=== PATIENT | female | born 1935 | race Caucasian/White ===

== ENCOUNTER 2016-11-25 17:34 | Observation (INO) | payer OTHER ==
[~2016-11-25] VITALS: Ht 157.5 cm; Wt 69.4 kg
[~2016-11-25 17:34] MED LIST: IOHEXOL 350 MG/ML 10 ML VIAL (for RAD DIAG) IVCONTRAST ONE; LEVA500T33 PO; LISI10TA PO; LOMO PO; MEVA40TA6 PO; WARF7.5 PO
[2016-11-25 17:37] VITALS: BP 163/75; PULSE 88; RESP 17; TEMP 97.8; O2SAT 98
[2016-11-25 17:38] VITALS: RESP 17; O2SAT 99
[2016-11-25] MEDS ORDERED: SODIUM CHLORIDE 0.9% FLUSH 10 ML FLUSH IVF PRN (17:45)
[2016-11-25] MEDS ORDERED: LISI10TA PO (17:52)
[2016-11-25] MEDS ORDERED: PLAV75TA29 PO (17:52)
--- NOTE | 2016-11-25 17:53 | RADRPT ---
EXAM DATE/TIME: 11/25/2016 17:38 [facility] COMPARISON: No previous studies available for comparison. INDICATIONS : Diffulculty talking with some confusion. RADIATION DOSE: 56.35 CTDIvol (mGy) MEDICAL HISTORY : None SURGICAL HISTORY : None. ENCOUNTER: Initial ACUITY: 1 day PAIN SCALE: 3/10 LOCATION: Bilateral cranial TECHNIQUE: Multiple contiguous axial images were obtained of the head. Using automated exposure control and adj ustment of the mA and/or kV according to patient size, radiation dose was kept as low as reasonably a chievable to obtain optimal diagnostic quality images. DICOM format image data is available electro nically for review and comparison. FINDINGS: CEREBRUM: The ventricles are normal for age. No evidence of midline shift, mass lesion, hemorrhage or acute in farction. No extra-axial fluid collections are seen. POSTERIOR FOSSA: The cerebellum and brainstem are intact. The 4th ventricle is midline. The cerebellopontine angle i s unremarkable. EXTRACRANIAL: The visualized portion of the orbits is intact. SKULL: The calvaria is intact. No evidence of skull fracture. CONCLUSION: 1. No acute intracranial abnormality identified. Antwan Rodrigues MD on November 25, 2016 at 17:50 Board Certified Radiologist. This report was verified electronically.
--- NOTE | 2016-11-25 18:14 | PD ---
HPI Chief Complaint: Neuro Symptoms/ Deficits Time Seen by Provider: 17:41 Travel History International Travel<30 days: No Contact w/Intl Traveler<30days: No Traveled to known affect area: No History of Present Illness HPI The patient is a 81 yo F who arrives by EMS. The patient told EMS she had slurred speech. Evidently she lost consciousness and slipped to the ground before EMS arrived. On my exam the patient describes generalized fatigue constant and of moderate severity. EMS was concerned for a stroke having observed slurred speech in route to the ER. Location neurologic. Timing constant. PFSH Past Medical History Hx Anticoagulant Therapy: Yes (PLAVIX) Cardiovascular Problems: Yes (HBP) Cerebrovascular Accident: Yes (2015) Diminished Hearing: No Hypertension: Yes Respiratory: Yes (HX OF PE 2005) Menopausal: Yes Past Surgical History Abdominal Surgery: Yes (INTESTINAL BLOCKAGE 1972) Appendectomy: Yes (1949) Cholecystectomy: Yes (1951) Social History Alcohol Use: Yes (4-5 BEERS PER WEEK) Tobacco Use: No Substance Use: No Allergies-Medications (Allergen,Severity, Reaction): Coded Allergies: No Known Allergies (Unverified , 11/25/16) Reported Meds & Prescriptions Reported Meds & Active Scripts Active Reported Plavix (Clopidogrel Bisulfate) 75 Mg Tab 75 Mg PO DAILY Lisinopril-Hctz 10-12.5 Mg Tab 1 Tab PO DAILY Review of Systems Except as stated in HPI: all other systems reviewed are Neg Physical Exam Narrative GENERAL: 81-year-old female well-nourished well-developed SKIN: Warm and dry. HEAD: Atraumatic. Normocephalic. EYES: Pupils equal and round. No scleral icterus. No injection or drainage. ENT: No nasal bleeding or discharge. Mucous membranes pink and moist. NECK: Trachea midline. No JVD. CARDIOVASCULAR: Regular rate and rhythm. RESPIRATORY: No accessory muscle use. Clear to auscultation. Breath sounds equal bilaterally. GASTROINTESTINAL: Abdomen soft, non-tender, nondistended. Hepatic and splenic margins not palpable. MUSCULOSKELETAL: Extremities without clubbing, cyanosis, or edema. No obvious deformities. NEUROLOGICAL: Patient speaks full sentences. There is no pronator drift. The hand engraver tire mold is equal bilaterally. 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 Pt can ready sentences. There is no facial asymmetry. PSYCHIATRIC: Appropriate mood and affect; insight and judgment normal. Data Data Last Documented VS Vital Signs Date Time Temp Pulse Resp B/P (MAP) Pulse Ox O2 Delivery O2 Flow Rate FiO2 11/25/16 18:18 97.9 83 17 146/65 (92) 97 Room Air Vital signs reviewed Orders Orders Electrocardiogram (11/25/16 17:41) Prothrombin Time / Inr (Pt) (11/25/16 17:41) Act Partial Throm Time (Ptt) (11/25/16 17:41) Complete Blood Count With Diff (11/25/16 17:41) Basic Metabolic Panel (Bmp) (11/25/16 17:41) Drug Screen, Random Urine (11/25/16 17:41) Troponin I (11/25/16 17:41) Urinalysis - C+S If Indicated (11/25/16 17:41) Ct Brain W/O Iv Contrast(Rout) (11/25/16 17:41) Ecg Monitoring (11/25/16 17:41) Iv Access Insert/Monitor (11/25/16 17:41) Oximetry (11/25/16 17:41) Blood Glucose (11/25/16 17:41) Sodium Chloride 0.9% Flush (Ns Flush) (11/25/16 17:45) Alcohol (Ethanol) (11/25/16 17:41) Sodium Chlor 0.9% 1000 Ml Inj (Ns 1000 M (11/25/16 19:15) Potassium Chloride (Kcl) (11/25/16 19:15) Admit Order (Ed Use Only) (11/25/16 19:23) Labs Laboratory Tests Test 11/25/16 18:00 White Blood Count 10.9 TH/MM3 Red Blood Count 3.67 MIL/MM3 Hemoglobin 11.4 GM/DL Hematocrit 33.0 % Mean Corpuscular Volume 90.1 FL Mean Corpuscular Hemoglobin 31.2 PG Mean Corpuscular Hemoglobin Concent 34.6 % Red Cell Distribution Width 13.5 % Platelet Count 276 TH/MM3 Mean Platelet Volume 7.0 FL Neutrophils (%) (Auto) 57.6 % Lymphocytes (%) (Auto) 33.1 % Monocytes (%) (Auto) 7.0 % Eosinophils (%) (Auto) 1.9 % Basophils (%) (Auto) 0.4 % Neutrophils # (Auto) 6.3 TH/MM3 Lymphocytes # (Auto) 3.6 TH/MM3 Monocytes # (Auto) 0.8 TH/MM3 Eosinophils # (Auto) 0.2 TH/MM3 Basophils # (Auto) 0.0 TH/MM3 CBC Comment DIFF FINAL Differential Comment Prothrombin Time 10.1 SEC Prothromb Time International Ratio 0.9 RATIO Activated Partial Thromboplast Time 24.5 SEC Blood Urea Nitrogen 11 MG/DL Creatinine 0.67 MG/DL Random Glucose 79 MG/DL Calcium Level 8.5 MG/DL Sodium Level 124 MEQ/L Potassium Level 3.0 MEQ/L Chloride Level 91 MEQ/L Carbon Dioxide Level 19.5 MEQ/L Anion Gap 14 MEQ/L Estimat Glomerular Filtration Rate 85 ML/MIN Troponin I LESS THAN 0.02 NG/ML Ethyl Alcohol Level 195 MG/DL [facility] Medical Decision Making Medical Screen Exam Complete: Yes Emergency Medical Condition: Yes Medical Record Reviewed: Yes Differential Diagnosis TIA, CVA, etoh intox Narrative Course Last Impressions Head CT 11/25/161740 Signed Impressions: Service Date/Time: November 17:38 - CONCLUSION: 1. No acute intracranial abnormality identified. Antwan Rodrigues MD CBC & BMP Diagram 11/25/16 18:00 Calcium Level 8.5 EtOH 195 Last [address] 11/25/161740 Signed Impressions: Service Date/Time: November 17:38 - CONCLUSION: 1. No acute intracranial abnormality identified. Antwan Rodrigues MD d/w Dr Juárez Diagnosis Primary Impression: Altered mental status Qualified Codes: R41.82 - Altered mental status, unspecified Additional Impressions: Alcohol intoxication Qualified Codes: F10.929 - Alcohol use, unspecified with intoxication, unspecified Hypokalemia Hyponatremia Admitting Information Admitting Physician Requests: Observation Antwan Robertson MD Nov 25, 2016 18:14
[2016-11-25 18:18] VITALS: BP 146/65; PULSE 83; RESP 17; TEMP 97.9; O2SAT 97
[2016-11-25 18:24] LABS: AUTOMATED NEUTROPHIL # 6.3 TH/MM3 (1.8-7.7); BASOPHIL % 0.4 % (0.0-2.0); EOSINOPHIL # 0.2 TH/MM3 (0-0.4); EOSINOPHIL % 1.9 % (0.0-4.0); HEMO FLAGS DIFF FINAL; LYMPH % 33.1 % (9.0-44.0); LYMPHOCYTE # 3.6 TH/MM3 (1.0-4.8); MEAN CELL VOLUME 90.1 FL (80.0-100.0); MEAN CORPUSCULAR HEMOGLOBIN 31.2 PG (27.0-34.0); MEAN CORPUSCULAR HGB CONC 34.6 % (32.0-36.0); NEUT % 57.6 % (16.0-70.0); PLATELET COUNT 276 TH/MM3 (150-450); RED BLOOD COUNT 3.67 MIL/MM3 (4.00-5.30); RED CELL DISTRIBUTION WIDTH 13.5 % (11.6-17.2); WHITE BLOOD COUNT 10.9 TH/MM3 (4.0-11.0)
[2016-11-25 18:38] LABS: APTT (PATIENT) 24.5 SEC (24.3-30.1); INTERNATIONAL NORMALIZED RATIO 0.9 RATIO; PROTHROMBIN TIME - PATIENT 10.1 SEC (9.8-11.6)
[2016-11-25 18:45] LABS: ALCOHOL 195 MG/DL (0-5); ANION GAP 14 MEQ/L (5-15); BICARBONATE 19.5 MEQ/L (21.0-32.0); BLOOD UREA NITROGEN 11 MG/DL (7-18); CHLORIDE 91 MEQ/L (98-107); GLOMERULAR FILTRATION RATE 85 ML/MIN (>89)
[2016-11-25 18:48] LABS: SODIUM (NA) 124 MEQ/L (136-145)
[2016-11-25] MEDS ORDERED: SODIUM CHLOR 0.9% 1000 ML INJ 1,000 ML IV ONE (19:15)
[2016-11-25] MEDS ORDERED: POTASSIUM CHLORIDE 20 MEQ CONTROLLED RELEASE TAB PO ONE (19:15)
[2016-11-25] MEDS ORDERED: GADODIAMIDE PF 287 MG/ML 5 ML VIAL (for RAD MRI) IVCONTRAST ONE (19:26)
[2016-11-25] MEDS ORDERED: SODIUM CHLOR 0.9% 1000 ML INJ 1,000 ML IV SCH (20:10)
[2016-11-25] MEDS ORDERED: ONDANSETRON HCL 4 MG/2 ML VIAL IVP PRN (20:15)
[2016-11-25] MEDS ORDERED: SODIUM CHLORIDE 0.9% FLUSH 10 ML FLUSH IV FLUSH PRN (20:15)
[2016-11-25] MEDS ORDERED: NALOXONE HCL 0.4 MG/ML AMP IV PUSH PRN (20:15)
[2016-11-25] MEDS: SODIUM CHLORIDE 0.9% FLUSH 10 ML FLUSH IV FLUSH SCH (20:55)
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
--- NOTE | 2016-11-25 23:04 | RADRPT ---
EXAM DATE/TIME: 11/25/2016 22:42 [facility] COMPARISON: No previous studies available for comparison. INDICATIONS : Short of breath. MEDICAL HISTORY : Compression fracture. SURGICAL HISTORY : None. ENCOUNTER: Initial ACUITY: 1 day PAIN SCORE: 0/10 LOCATION: Bilateral chest FINDINGS: A single view of the chest demonstrates the lungs to be slightly hyperinflated but clear. No effusion s. Heart size is normal. Osseous structures are grossly intact with some degenerative spur of the dominick maciej spine. Calcific tendinopathy in the left shoulder. CONCLUSION: Mild hyperinflation with no acute infiltrate. Aubrey Perdomo MD on November 25, 2016 at 23:02 Board Certified Radiologist. This report was verified electronically.
[2016-11-26] MEDS: NS + KCL 20 MEQ INJ 1,000 ML IV SCH ×2 (04:46→16:04)
--- NOTE | 2016-11-26 06:22 | RADRPT ---
EXAM DATE/TIME: 11/26/2016 05:29 [facility] COMPARISON: No previous studies available for comparison. INDICATIONS : Shortness of breath, elevated d-dimer. IV CONTRAST: 100 cc Omnipaque 350 (iohexol) IV ; Cumulative dose for multiple exams. RADIATION DOSE: 8.90 CTDIvol (mGy) MEDICAL HISTORY : Hypertension. SURGICAL HISTORY : None. ENCOUNTER: Initial ACUITY: 1 day PAIN SCALE: 0/10 LOCATION: chest TECHNIQUE: Volumetric scanning of the chest was performed using a pulmonary embolism protocol MIP images were re constructed. Using automated exposure control and adjustment of the mA and/or kV according to patien t size, radiation dose was kept as low as reasonably achievable to obtain optimal diagnostic quality images. DICOM format image data is available electronically for review and comparison. Follow-up recommendations for detected pulmonary nodules are based at a minimum on nodule size and pa tient risk factors according to Fleischner Society Guidelines. FINDINGS: PULMONARY ARTERIES: No filling defects are seen in the pulmonary arteries through the segmental level. LUNGS: No confluent infiltrate. There is some scarring or atelectasis in the left lingula. Subcentimeter oneyda cified and noncalcified nodules likely represent old granulomatous disease. PLEURAE: There is no pleural thickening or pleural effusion. MEDIASTINUM: There is good visualization of the great vessels of the middle mediastinum. No evidence of mediastin al or hilar adenopathy/mass. There is mild calcification of the mitral valve MUSCULOSKELETAL: Within normal limits for patient age. MISCELLANEOUS: The visualized upper abdominal organs demonstrate no acute abnormality. CONCLUSION: 1. Small, 2-3 mm calcified and noncalcified nodules bilaterally likely represent renal granulomatous disease. 2. Atelectasis/scarring in the left lingula. 3. No confluent infiltrate or pulmonary embolus to explain current clinical symptoms.. Aubrey Perdomo MD on November 26, 2016 at 6:17 Board Certified Radiologist. This report was verified electronically.
[2016-11-26 06:24] LABS: BASOPHIL % 0.4 % (0.0-2.0); EOSINOPHIL # 0.1 TH/MM3 (0-0.4); EOSINOPHIL % 0.6 % (0.0-4.0); HEMATOCRIT 36.2 % (35.0-46.0); LYMPH % 14.8 % (9.0-44.0); LYMPHOCYTE # 1.9 TH/MM3 (1.0-4.8); MEAN CELL VOLUME 90.8 FL (80.0-100.0); MEAN CORPUSCULAR HEMOGLOBIN 30.5 PG (27.0-34.0); MEAN CORPUSCULAR HGB CONC 33.5 % (32.0-36.0); MONO % 8.1 % (0.0-8.0); NEUT % 76.1 % (16.0-70.0); PLATELET COUNT 310 TH/MM3 (150-450); RED BLOOD COUNT 3.98 MIL/MM3 (4.00-5.30); RED CELL DISTRIBUTION WIDTH 13.6 % (11.6-17.2); WHITE BLOOD COUNT 13.1 TH/MM3 (4.0-11.0)
[2016-11-26 06:34] LABS: HEMO FLAGS AUTO DIFF
--- NOTE | 2016-11-26 06:46 | RADRPT ---
EXAM DATE/TIME: 11/26/2016 05:29 [facility] COMPARISON: No previous studies available for comparison. INDICATIONS : Abdominal pain. IV CONTRAST: 100 cc Omnipaque 350 (iohexol) IV ; Cumulative dose for multiple exams. ORAL CONTRAST: No oral contrast ingested. RADIATION DOSE: 12.67 CTDIvol (mGy) MEDICAL HISTORY : Hypertension. SURGICAL HISTORY : Cholecystectomy. Appendectomy. ENCOUNTER: Initial ACUITY: 1 day PAIN SCALE: 8/10 LOCATION: abdomen TECHNIQUE: Volumetric scanning of the abdomen and pelvis was performed. Using automated exposure control and ad justment of the mA and/or kV according to patient size, radiation dose was kept as low as reasonably achievable to obtain optimal diagnostic quality images. DICOM format image data is available electro nically for review and comparison. FINDINGS: LOWER LUNGS: Mild bibasilar dependent atelectatic changes. Punctate subpleural nodular densities predominantly in the right are nonspecific but probably postinflammatory. Small hiatal hernia. LIVER: Homogeneous density without lesion. There is no dilation of the biliary tree. Gallbladder is not vis ualized characteristic of a reported history of cholecystectomy. SPLEEN: Normal size without lesion. PANCREAS: Within normal limits. KIDNEYS: Normal in size and shape. There is no mass, stone or hydronephrosis. ADRENAL GLANDS: Within normal limits. VASCULAR: There is no aortic aneurysm. BOWEL/MESENTERY: The stomach, small bowel, and colon demonstrate no acute abnormality. Diverticular disease of the sig moid colon without diverticulitis. ABDOMINAL WALL: Within normal limits. RETROPERITONEUM: There is no lymphadenopathy. BLADDER: No wall thickening or mass. REPRODUCTIVE: Small 1.9 cm cyst appears to be associated with the right ovary. INGUINAL: There is no lymphadenopathy or hernia. MUSCULOSKELETAL: Within normal limits for patient age. CONCLUSION: 1. Minimal bibasilar atelectatic changes with multiple subpleural 2 mm nodules in the right lower lob e characteristic of a postinflammatory process. 2. Small hiatal hernia. 3. 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 4. 1.9 cm cyst appears to be associated with the right ovary. 5. Otherwise, no acute intracranial or pelvic process to explain current clinical symptoms Aubrey Perdomo MD on November 26, 2016 at 6:38 Board Certified Radiologist. This report was verified electronically.
[2016-11-26 07:06] LABS: ALKALINE PHOSPHATASE 94 U/L (45-117); ALT (GPT) 38 U/L (10-53); ANION GAP 12 MEQ/L (5-15); AST (GOT) 47 U/L (15-37); BICARBONATE 19.3 MEQ/L (21.0-32.0); BLOOD UREA NITROGEN 8 MG/DL (7-18); CHLORIDE 99 MEQ/L (98-107); GLOMERULAR FILTRATION RATE 104 ML/MIN (>89); MAGNESIUM 1.8 MG/DL (1.5-2.5); POTASSIUM 3.9 MEQ/L (3.5-5.1); SODIUM (NA) 130 MEQ/L (136-145); TOTAL BILIRUBIN ADULT 1.1 MG/DL (0.2-1.0)
[2016-11-26 07:33] VITALS: BP 181/82; PULSE 94; RESP 18; O2SAT 98
[2016-11-26 07:59] LABS: PLATELET ESTIMATE SMEAR NORMAL (NORMAL); PLATELET MORPHOLOGY NORMAL (NORMAL); SCAN/DIFF AUTO DIFF CONFIRMED
[2016-11-26 08:08] LABS: BLOOD, URINE NEG (NEG); GLUCOSE,URINE NEG (NEG); KETONE, URINE 40 mg/dL (NEG); NITRITE,URINE NEG (NEG); PH, URINE 5.5 (5.0-8.5); SQUAMOUS EPITHELIAL CELL URINE 1 /hpf (0-5); URINE COLOR LIGHT-YELLOW (YELLW/STRAW)
[2016-11-26 08:11] LABS: COMMENT (UR) CATH-CULT NOT IND; CULTURE IF INDICATED CATH CULTURE NOT IND
[2016-11-26] MEDS: ENOXAPARIN SODIUM 80 MG/0.8 ML SYRINGE SQ SCH ×2 (08:24→21:12)
[2016-11-26] MEDS: CLOPIDOGREL 75 MG TAB PO SCH (08:25)
[2016-11-26] MEDS: LISINOPRIL 10 MG TAB PO SCH (08:25)
[2016-11-26] MEDS: HYDROCHLOROTHIAZIDE 25 MG TAB PO SCH (08:27)
[2016-11-26] MEDS: SODIUM CHLORIDE 0.9% FLUSH 10 ML FLUSH IV FLUSH SCH ×2 (08:27→21:15)
[2016-11-26] MEDS ORDERED: NON-FORMULARY DRUG (Lisinopril-Hctz 1 TAB) PO SCH (09:00)
[2016-11-26 09:58] LABS: C. DIFF EPI 027 PRESUMPTIVE NEGATIVE (NEGATIVE)
--- NOTE | 2016-11-26 11:42 | EKG ---
Date Performed: 11/25/2016 Time Performed: 17:56:48 PTAGE: 81 years EKG: Sinus rhythm LOW QRS VOLTAGE IN PRECORDIAL LEADS BORDERLINE ECG Compared to prior tracing no significant change PREVIOUS TRACING : 05/03/2005 13.05 DOCTOR: Rishabh Navarro Interpretating Date/Time 11/26/2016 11:40:24
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
[2016-11-26] MEDS ORDERED: LOPERAMIDE HCL 2 MG CAP PO PRN (16:00)
[2016-11-26 16:33] VITALS: BP 157/105; PULSE 89; RESP 20; TEMP 98.3; O2SAT 98
[2016-11-26] MEDS: LACTOBACILLUS ACIDOPHILUS TAB PO SCH (21:12)
[2016-11-26 21:18] VITALS: BP 181/86; PULSE 94; RESP 18; TEMP 98; O2SAT 98
[2016-11-26] MEDS ORDERED: LORazepam 2 MG/ML VIAL IV PUSH ONE (21:30)
--- NOTE | 2016-11-26 22:57 | RADRPT ---
EXAM DATE/TIME: 11/26/2016 22:13 [facility] COMPARISON: No previous studies available for comparison. INDICATIONS : CVA. Slurred speech CONTRAST: 15 cc Omniscan (gadodiamide) IV MEDICAL HISTORY : Hypertension. CVA SURGICAL HISTORY : Colon resection. Appendectomy. Tonsillectomy. ENCOUNTER: Initial ACUITY: 1 day PAIN SCORE: 0/10 LOCATION: cranial TECHNIQUE: Multiplanar, multisequence MRI of the brain was performed both prior to and following the administrat ion of paramagnetic contrast. FINDINGS: CEREBRUM: The ventricles are normal for age. No evidence of midline shift, mass lesion, hemorrhage or acute in farction. No extraaxial fluid collections are seen. Into sella. There is diffuse mild atrophy. WHITE MATTER: Mild, symmetric chronic flair signal abnormality seen in the periventricular white matter of both cer ebral hemispheres. POSTERIOR FOSSA: The cerebellum and brainstem are intact. The 4th ventricle is midline. The cerebellopontine angle is unremarkable. The cerebellar tonsils are normal in position. DIFFUSION IMAGING: No focal areas of restricted diffusion are seen. No evidence of acute infarction. EXTRACRANIAL: The visualized portions of the orbits and paranasal sinuses are unremarkable. POST-CONTRAST: No abnormal areas of parenchymal or dural enhancement. No evidence of blood-brain barrier breakdown. CONCLUSION: 1. No acute intracranial abnormality. 2. Mild atrophy and chronic white matter changes. 3. Incidentally seen empty sella. Andrea Tinoco MD on November 26, 2016 at 22:55 Board Certified Radiologist. This report was verified electronically.
[2016-11-26 23:34] VITALS: BP_SYST 129; BP_SYST 141; BP_SYST 148; BP_DIAS 60; BP_DIAS 69; BP_DIAS 73; PULSE 84; RESP 16; TEMP 98.4; O2SAT 97
[2016-11-27] MEDS: NS + KCL 20 MEQ INJ 1,000 ML IV SCH ×2 (00:39→10:15)
[2016-11-27 03:57] VITALS: BP 130/62; PULSE 86; RESP 16; TEMP 98; O2SAT 96
[2016-11-27 07:35] VITALS: PULSE 67
[2016-11-27 07:48] VITALS: PULSE 81
[2016-11-27 08:22] VITALS: BP 148/71; PULSE 82; RESP 15; TEMP 98.4; O2SAT 98
[2016-11-27 09:36] LABS: AUTOMATED NEUTROPHIL # 4.7 TH/MM3 (1.8-7.7); BASOPHIL # 0.1 TH/MM3 (0-0.2); BASOPHIL % 0.8 % (0.0-2.0); EOSINOPHIL # 0.2 TH/MM3 (0-0.4); EOSINOPHIL % 3.2 % (0.0-4.0); HEMATOCRIT 35.5 % (35.0-46.0); HEMO FLAGS DIFF FINAL; LYMPH % 26.3 % (9.0-44.0); MEAN CELL VOLUME 90.8 FL (80.0-100.0); MEAN CORPUSCULAR HEMOGLOBIN 30.4 PG (27.0-34.0); MEAN CORPUSCULAR HGB CONC 33.5 % (32.0-36.0); MONO % 8.4 % (0.0-8.0); NEUT % 61.3 % (16.0-70.0); PLATELET COUNT 277 TH/MM3 (150-450); RED BLOOD COUNT 3.91 MIL/MM3 (4.00-5.30); RED CELL DISTRIBUTION WIDTH 13.9 % (11.6-17.2); WHITE BLOOD COUNT 7.6 TH/MM3 (4.0-11.0)
--- NOTE | 2016-11-27 09:42 | HHI.PR ---
Subjective Remarks sr no new spells Objective Vital Signs Date Time Temp Pulse Resp B/P (MAP) Pulse Ox O2 Delivery O2 Flow Rate FiO2 11/27/16 08:22 98.4 82 15 148/71 (96) 98 11/27/16 07:48 81 11/27/16 03:57 98.0 86 16 130/62 (84) 96 11/26/16 23:34 98.4 84 16 129/60 (83) 97 148/73 (98) 141/69 (93) 11/26/16 21:18 98.0 94 18 181/86 (117) 98 11/26/16 16:33 98.3 89 20 157/105 (122) 98 11/26/16 13:50 I/O 11/26/16 11/26/16 11/26/16 11/27/16 11/27/16 11/27/16 07:00 15:00 23:00 07:00 15:00 23:00 Intake Total 167 ml 240 ml Balance 167 ml 240 ml Intake Oral 240 ml IV Total 167 ml # Voids 2 1 1 # Bowel Movements 2 Result Diagram: 11/27/16 0908 11/26/16 0600 Objective Remarks awake alert moves all well nad Assessment and Plan Assessment and Plan imp mri here neg new cva at pending sale to [facility] echo and us carotid ldl nl small left thalamic cva lacunar type in 09/27 pending sale to [facility] eeg pend sr overnoc no new spells etoh inc? if eeg done and cow ok and cards clears ok dc by me bp control syncope Pete Hutton MD Nov 27, 2016 09:42
[2016-11-27] MEDS: LACTOBACILLUS ACIDOPHILUS TAB PO SCH (10:08)
[2016-11-27] MEDS: SODIUM CHLORIDE 0.9% FLUSH 10 ML FLUSH IV FLUSH SCH (10:09)
[2016-11-27] MEDS: CLOPIDOGREL 75 MG TAB PO SCH (10:09)
[2016-11-27] MEDS: HYDROCHLOROTHIAZIDE 25 MG TAB PO SCH (10:09)
[2016-11-27 10:10] LABS: BICARBONATE 22.2 MEQ/L (21.0-32.0); MAGNESIUM 1.8 MG/DL (1.5-2.5)
[2016-11-27] MEDS: LISINOPRIL 10 MG TAB PO SCH (10:11)
[2016-11-27] MEDS: ENOXAPARIN SODIUM 80 MG/0.8 ML SYRINGE SQ SCH (10:13)
[2016-11-27 10:27] LABS: POTASSIUM 4.8 MEQ/L (3.5-5.1)
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
[2016-11-27 10:59] VITALS: BP 143/67; PULSE 92; RESP 17; TEMP 98.6; O2SAT 98
[2016-11-27 11:35] LABS: INDIRECT BILIRUBIN 0.8 MG/DL (0.0-0.8)
--- NOTE | 2016-11-27 12:10 | MB ---
cc: LIZ BLOOD,AYAZ SANTA DATE OF CONSULTATION: 11/27/2016. HISTORY OF PRESENT ILLNESS: I have reviewed office and hospital records. 81 y.o. WF. The patient apparently was at [facility] two months ago for a stroke. She said that there were no blockages in her neck and her heart pumping function and rhythm were normal. She did have a pulmonary embolism in 2005. The patient has two to three drinks per day. More recently she has drunk more heavily. On the day of admission, the patient had drunk much more heavily. Her last drink was at least 4 hours before her admission here. SPECT nuclear and echocardiogram in 2013 was normal, and according to neurology note, workup was negative except for a thalamic lacuna 09/27 at [facility]. On the day of admission, the patient noted that she got up quickly and became lightheaded and fell to the floor. Her may have noted some shaking but she was unconscious for very short period. There was no post-ictal type of behavior and apparently she woke up quickly. There was no incontinence. She does note that she does get lightheaded when she stands up. She has mild stable dyspnea. She has no other cardiac symptomatology. PAST MEDICAL HISTORY: 1. Hypertension. 2. Diabetes. 3. Osteoarthritis. 4. COPD. 5. Prior pulmonary embolism. 6. Appendectomy. 7. Cholecystectomy. 8. Colon surgery for obstruction. SOCIAL HISTORY: She is and has at least two to three drinks daily. She is a former smoker. FAMILY HISTORY: Remarkable with a sister with coronary artery disease. ALLERGIES / INTOLERANCES: 1. DARVOCET. 2. EFFEXOR. MEDICATION LIST: Reviewed. REVIEW OF SYSTEMS: Review of systems remarkable for lightheadedness when she stands up, three weeks of loose stools and the above complaints. It is otherwise unremarkable except for joint and backaches. PHYSICAL EXAMINATION: GENERAL: On exam, she is alert and oriented times three. VITAL SIGNS: Afebrile. The vital signs are stable with intermittent hypertension. SKIN: There are no xanthelasma and oropharyngeal mucosa normal. CHEST: Clear. CARDIOVASCULAR: JVD normal. S1, S2. No murmurs or gallops. ABDOMEN: Benign. EXTREMITIES: No cyanosis, clubbing or edema. PULSES: Pulses 1 to 2+ throughout without bruits. NEUROLOGIC: She was not ambulated. EKGS: EKG shows sinus rhythm and is normal. Telemetry shows sinus rhythm with occasional PAC. IMAGING STUDIES: Chest x-ray with mild hyperinflation. Brain MRI with no intracranial abnormality but with an empty sella. CT angiogram with probable old granulomatous disease, atelectasis and no pulmonary embolus. Abdominal CT with diverticular disease and right ovarian cyst. LABORATORY FINDINGS: She is mildly anemic. PT/PTT were normal. Initial sodium 124 and was 130 yesterday. Creatinine normal. Liver functions normal. Troponin negative. Albumin 3.9, magnesium 1.8. PROBLEMS: 1. Syncope - this most likely was due to some mild baseline orthostasis with this exacerbated by significant ethanol intoxication. Her level was 2-1/2 times the legal limit at least four hours after her last drink. 2. History of CVA. 3. Hypertension. 4. Hyperlipidemia. 5. COPD. RECOMMENDATIONS: 1. I am not sure why she is on full-dose anticoagulation. From my standpoint, there is no definite indication and I would ask that her other physicians review this as this is most likely not needed. 2. Continue home medication. 3. Low cholesterol / salt diet with risk factor modification per primary service. 4. Alcohol abstinence 5. She will call our office on Tuesday for follow up with Dr. Sprague who is her baseline paper inserter. All questions have been answered. I will be available if needed. MD AUDIE Holder/CARY /9:50 AM /11:54 AM MTDD
--- NOTE | 2016-11-27 21:30 | MG ---
cc: PETE LACEY Lab No: [id number] Date: 11/27/16 Age: 81 Sex: F Race: A 81-year-old woman, slurred speech, syncope. The recording shows a diffuse low amplitude alpha and beta rhythms. The recording overall is synchronous and symmetric. No hemisphere asymmetry is noted. No epileptiform or seizure activity is seen. It appears that she falls asleep towards the middle of the EEG with some sleep spindles and does in fact reach stage II sleep which is synchronous and symmetric. Photic stimulation was performed without significant posterior driving. Hyperventilation is not performed. IMPRESSION Normal awake and stage II sleep EEG. No evidence for a focal or diffuse abnormality. Pete Lacey MD DJM/ROYAL /9:11 PM /9:22 PM
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
--- NOTE | 2016-11-29 10:34 | MB ---
cc: DEEPTHIJASON DATE OF CONSULTATION 11/26/16 HISTORY OF PRESENT ILLNESS A 81-year-old right-handed woman with a history of hypertension, a PE in 2005, a stroke on 09/26/2016 over at [facility] with right-sided weakness, almost full recovery from that. She was put on Plavix, was not on aspirin at that time. Was told she should see a interrelated special education teacher. Then she was admitted yesterday after a fall. She was walking after getting up. She did not feel lightheaded but in the past recently has had some lightheadedness on standing up. Nevertheless, her vision went black and then she seemed to pass out. Her may have seen a little tremor at that time. She think she was out a minute or two and then woke up. No confusion afterwards. No incontinence or tongue biting. She never had a seizure. No odd smells, tastes or tavon vu, never woke up wet the bed or bit her tongue. No new weakness, although, her noticed that she had a little bit of a left facial droop and less than an hour she had some slurred speech after this recent episode. REVIEW OF SYSTEMS She denies any diabetes, GA, stents, CABG, a fib, renal, hepatic, pulmonary disease, thyroid disease, lupus, ulcer, cancer, known seizure. SOCIAL HISTORY She is not a smoker. Occasional drink. Lives with her . FAMILY HISTORY Negative for cancer, seizure, stroke. MEDICATIONS 1. Plavix. 2. Lisinopril/hydrochlorothiazide. ALLERGIES NO KNOWN DRUG ALLERGIES. PHYSICAL EXAMINATION VITAL SIGNS: On exam sinus rhythm, afebrile 89, 21, 57/105 to 181/82. NECK: There were no carotid bruits. HEART: Regular rhythm. I did not detect a murmur. NEURO: Pupils are equal. Visual moore are full. Extraocular movements intact without nystagmus. Face symmetric, normal station. Tongue was midline. No drift. Normal strength in upper and lower extremities bilaterally. DTRs are 2 to 3+ symmetric throughout. Toes downgoing bilaterally. There is no ankle clonus. She had some gegenhalten type increased tone. Pinprick was intact as was vibratory sense. She is not ataxic on [id number]. Speech is fluent. She is not aphasic. She knew the year, gave a good history. LABORATORY DATA White count was 13, otherwise, CBC was normal. Urine drug screen was negative. UA is negative. Coags were normal. Sodium was only 124, had been 125 in 2007 but 141 in 2005. Sodium today is 130. Potassium was 3 and now 3.9 today. Creatinine and GFR normal. LFTs minimally elevated. Troponin was negative. IMAGING STUDIES She had a CTA that was negative for PE. She had a CAT scan of her brain that was read as negative. Abdominal CT right lower lobe nodules, possibly inflammatory. Chest x-ray negative. Review of the CT, has some mild diffuse atrophy, some slight prominence of the ventricles. She has got a left periventricular around the head of the frontal horn of the lateral ventricle, some hypodensity there. May have been a recent stroke. I do not see a major cortically based infarct. IMPRESSION Syncopal episode. I would worry about a cardiac arrhythmia with the recent stroke. We will have cardiology see her. She should have at least a Holter monitor, if not, really a 30-day monitor placed. I will look at the workup she had over at [facility] last month. Will check some orthostatics on her, an EEG and otherwise I thought she looked well neurologically. Check an MRI, make sure there is no new stroke. I would mainly be concerned with the recent stroke ___ cardiac arrhythmia. MD DHAVAL Andrea/ROYAL /5:29 PM /10:29 AM
== END 2016-11-27 13:28 | disposition home or self-care (01) ==
LOC: NEPE 17:34 → NEDA 19:25 → NEDH 11-26 03:46 → NEPHCDU 11-26 13:39
PROVIDERS: ADMIT Internal Medicine; ATTEND Internal Medicine
DX: R55 Syncope and collapse (principal); R06.00 Dyspnea, unspecified; E87.6 Hypokalemia; E87.1 Hypo-osmolality and hyponatremia; F10.929 Alcohol use, unspecified with intoxication, unspecified; Y90.6 Blood alcohol level of 120-199 mg/100 ml; E78.5 Hyperlipidemia, unspecified; E11.9 Type 2 diabetes mellitus without complications; W18.30XA Fall on same level, unspecified, initial encounter; Z86.73 Personal history of transient ischemic attack (TIA), and cerebral infarction without residual deficits; Z86.711 Personal history of pulmonary embolism; Z87.891 Personal history of nicotine dependence; Z79.01 Long term (current) use of anticoagulants
CPT/HCPCS: 70450; 70553; 71010; 71275; 74177; 80048; 80053; 80076; 80307; 81001; 83735; 84443; 84484; 85025; 85379; 85610; 85730; 87102; 87205; 87207; 87328; 87329; 87493; 87506; 93005; 95819; 96361; 96365; 96366; 96372; 96375; 97161; 99285; A9579; G0378; G8987; G8988; J1650; J2060; J3480; J7030; Q9967